=== PATIENT | male | born 1945 | race Two or more races ===

== ENCOUNTER 2025-07-22 14:46 | Inpatient (IN) | payer MEDICARE, OTHER ==
[~2025-07-22] VITALS: Ht 175.3 cm; Wt 68.0 kg
[2025-07-22 16:43] LABS: PLATELET COUNT (AUTO) 226 K/uL (150-450); RED BLOOD CELL COUNT(AUTO) 4.64 MIL/uL (4.5-6.0); RED CELL DISTRIBUTION WIDTH 15.8 % (11.5-15.0); WHITE BLOOD COUNT (AUTO) 5.6 K/uL (4.3-11.0)
[2025-07-22 16:51] LABS: CALCIUM, SERUM 8.8 mg/dL (8.5-10.1); CREATININE 0.8 mg/dL (0.6-1.3); SODIUM SERUM 136 mmol/L (136-145); UREA NITROGEN, BLOOD 29 mg/dL (7-18)
[2025-07-22 16:56] LABS: ASPARTATE AMINOTRANSFERASE 18 U/L (15-37)
[2025-07-22 16:57] LABS: TOTAL PROTEIN, SERUM 7.7 g/dL (6.4-8.2)
[2025-07-22 17:00] VITALS: O2SAT 98
[2025-07-22 19:04] LABS: APPEARANCE,URINE CLEAR (CLEAR); BLOOD, URINE Negative Ery/uL (NEGATIVE); LEUKOCYTE ESTERASE ,URINE Negative (NEGATIVE); NITRITE, URINE NEGATIVE (NEGATIVE); UGLUCOSE >=1000 mg/dL (NEGATIVE)
[2025-07-22 19:22] LABS: AMPHETAMINE, URINE NEGATIVE (NEGATIVE); BARBITURATE, URINE NEGATIVE (NEGATIVE); CANNABINOID, URINE NEGATIVE (NEGATIVE); COCCAINE, URINE NEGATIVE (NEGATIVE); OPIATE, URINE NEGATIVE (NEGATIVE)
[2025-07-22 19:32] LABS: BENZODIAZEPINE, URINE NEGATIVE (NEGATIVE)
[2025-07-22] MEDS: BLOOD SUGAR DIAGNOSTIC 1 EACH STRIP IN ONE (21:30)
[2025-07-22] MEDS ORDERED: QUETIAPINE FUMARATE 25 MG TABLET PO PRN ×2 (21:30)
[2025-07-22] MEDS ORDERED: ACETAMINOPHEN 325 MG TABLET PO PRN (21:30)
[2025-07-22] MEDS ORDERED: MAGNESIUM HYDROXIDE 30 ML UDC PO PRN (21:30)
[2025-07-22] MEDS ORDERED: MAG HYDROX/AL HYDROX/SIMETH 30 ML UDC PO PRN (21:30)
[2025-07-22] MEDS ORDERED: ZOLPIDEM TARTRATE 5 MG TABLET PO PRN (21:30)
[2025-07-22] MEDS ORDERED: HALO5TAB8 PO (21:59)
[2025-07-22] MEDS ORDERED: MELA1TAB27 PO (21:59)
[2025-07-22] MEDS ORDERED: DUTA0.5C37 PO (21:59)
[2025-07-22] MEDS ORDERED: METF-440 PO (21:59)
[2025-07-22] MEDS ORDERED: OLAN10TA3 PO (21:59)
[2025-07-22] MEDS ORDERED: DIPH1POW MC (21:59)
[2025-07-22] MEDS ORDERED: EMPA25TA PO (21:59)
[2025-07-22] MEDS ORDERED: FLUO20TA28 PO (21:59)
[2025-07-23] MEDS ORDERED: HOME MED MISCELLANEOUS XX SCH
[2025-07-23] MEDS ORDERED: DEXTROSE 50%-WATER 50 ML DISP.SYRIN IV PRN (00:30)
[2025-07-23] MEDS: BLOOD SUGAR DIAGNOSTIC 1 EACH STRIP IN SCH (06:53)
[2025-07-23] MEDS: INSULIN REGULAR, HUMAN 100 UNIT/ML 3 ML VIAL SQ PRN (07:50)
[2025-07-23 08:00] VITALS: BP 98/78; TEMP 97.8; O2SAT 97
[2025-07-23] MEDS: DUTASTERIDE (0.5 MG) 0.5 MG CAPSULE PO SCH (08:51)
[2025-07-23] MEDS: METFORMIN 500 MG TABLET PO SCH (08:51)
[2025-07-23] MEDS: EMPAGLIFLOZIN 25 MG TABLET PO SCH (09:00)
[2025-07-23] MEDS: OLANZAPINE 10 MG VIAL IM STA (12:09)
[2025-07-23 16:07] VITALS: BP 110/81; TEMP 97.9; O2SAT 97
[2025-07-23] MEDS: DIVALPROEX SODIUM 125 MG TABLET.DR PO SCH (21:04)
[2025-07-25] MEDS ORDERED: OLANZAPINE 2.5 MG TABLET PO PRN (13:00)
[2025-07-25] MEDS: DIVALPROEX SODIUM 125 MG TABLET.DR PO SCH (14:00)
[2025-07-25] MEDS: OLANZAPINE 2.5 MG TABLET PO SCH (20:49)
[2025-07-26 08:00] VITALS: BP 114/67; TEMP 97.8; O2SAT 96
[2025-07-26 16:01] VITALS: BP 106/70; TEMP 98; O2SAT 98
[2025-07-28] MEDS: OLANZAPINE 2.5 MG TABLET PO SCH (11:30)
[2025-07-28] MEDS: OLANZAPINE 10 MG VIAL IM PRN (11:38)
[2025-07-30 08:00] VITALS: BP 138/86; TEMP 98.7; O2SAT 100
[2025-07-30] MEDS: OLANZAPINE 10 MG VIAL IM STA (10:08)
[2025-07-30 20:23] VITALS: BP 107/85; TEMP 98; O2SAT 98
[2025-07-31 08:00] VITALS: BP 112/64; TEMP 98; O2SAT 99
[2025-07-31] MEDS: DIVALPROEX SODIUM 125 MG CAP.SPRINK PO SCH (08:21)
[2025-07-31] MEDS: OLANZAPINE 10 MG VIAL IM ONE (15:03)
[2025-07-31 16:00] VITALS: BP 102/62; TEMP 98; O2SAT 98
[2025-07-31 19:52] VITALS: BP 135/71; TEMP 97.9; O2SAT 98
[2025-07-31] MEDS: ZOLPIDEM TARTRATE 5 MG TABLET PO PRN (20:19)
[2025-08-01 08:00] VITALS: BP 104/58; TEMP 98.6; O2SAT 98
[2025-08-01 16:00] VITALS: BP 139/66; TEMP 98.6; O2SAT 98
[2025-08-01 20:01] VITALS: BP 149/77; TEMP 98.4; O2SAT 98
[2025-08-01] MEDS: DIVALPROEX SODIUM 125 MG CAP.SPRINK PO SCH (20:11)
[2025-08-01] MEDS: OLANZAPINE 2.5 MG TABLET PO SCH (20:12)
[2025-08-02 08:00] VITALS: BP 132/64; TEMP 97.8; O2SAT 96
[2025-08-02 16:04] VITALS: BP 127/71; TEMP 97.8; O2SAT 100
[2025-08-02 20:01] VITALS: BP 141/76; TEMP 98.3; O2SAT 100
[2025-08-03 09:00] VITALS: BP 119/59; TEMP 97.5; O2SAT 98
[2025-08-03] MEDS ORDERED: OLANZAPINE 2.5 MG TABLET PO SCH (11:00)
[2025-08-03 16:00] VITALS: BP 120/61; TEMP 97.9; O2SAT 100
[2025-08-04] MEDS ORDERED: OLANZAPINE 10 MG VIAL IM PRN (13:30)
[2025-08-04 16:00] VITALS: BP 118/69; TEMP 97.8; O2SAT 100
[2025-08-04 20:02] VITALS: BP 128/72; TEMP 98.2
[2025-08-05 08:00] VITALS: BP 127/70; TEMP 98.1; O2SAT 98
[2025-08-05] MEDS: OLANZAPINE 2.5 MG TABLET PO SCH (08:37)
[2025-08-05] MEDS: DIVALPROEX SODIUM 125 MG CAP.SPRINK PO SCH (13:32)
[2025-08-05 16:00] VITALS: BP 113/68; TEMP 98.1; O2SAT 98
[2025-08-05 20:01] VITALS: BP 130/75; TEMP 98.1; O2SAT 98
[2025-08-06 08:00] VITALS: BP 116/70; TEMP 97.9; O2SAT 19
[2025-08-06 16:00] VITALS: BP 115/63; TEMP 98.2; O2SAT 100
[2025-08-06 19:45] VITALS: BP 104/62; TEMP 98.3; O2SAT 98
[2025-08-07 15:47] VITALS: BP 120/66; TEMP 98; O2SAT 99
[2025-08-07 20:31] VITALS: BP 138/64; TEMP 98.1; O2SAT 100
[2025-08-08 08:00] VITALS: BP 129/71; TEMP 97.8; O2SAT 98
[2025-08-08] MEDS: CEFTRIAXONE 1 G in IV D5W 50 ML IV SCH (10:00)
[2025-08-08] MEDS: CEFTRIAXONE 1 G VIAL IM SCH (11:41)
== END 2025-08-08 15:15 | DRG 885 ==
LOC: ER 14:57 → GPS 20:34
PROVIDERS: ADMIT Acupuncturist; ATTEND Nurse Practitioner Acute Care
DX: F29 Unspecified psychosis not due to a substance or known physiological condition (principal); E11.65 Type 2 diabetes mellitus with hyperglycemia; G93.40 Encephalopathy, unspecified; E44.1 Mild protein-calorie malnutrition; F31.2 Bipolar disorder, current episode manic severe with psychotic features; F03.918 Unspecified dementia, unspecified severity, with other behavioral disturbance; L03.115 Cellulitis of right lower limb; E88.09 Other disorders of plasma-protein metabolism, not elsewhere classified; F03.92 Unspecified dementia, unspecified severity, with psychotic disturbance; F03.93 Unspecified dementia, unspecified severity, with mood disturbance; E86.0 Dehydration; Z73.6 Limitation of activities due to disability; I87.2 Venous insufficiency (chronic) (peripheral); F39 Unspecified mood [affective] disorder; Z68.22 Body mass index [BMI] 22.0-22.9, adult; Z79.899 Other long term (current) drug therapy; Z91.199 Patient's noncompliance with other medical treatment and regimen due to unspecified reason
CPT/HCPCS: 36415; 80048-TC; 80076-TC; 82962-TC; 85025-TC; 87081-TC; 97110-TC; 97112-TC; 97116-TC; 97530-TC; J0696; J1815; J3490